=== PATIENT | male | born 2005 | race Two or more races ===

== ENCOUNTER 2023-01-06 16:35 | Emergency (ER) | payer OTHER ==
[~2023-01-06] VITALS: Ht 162.6 cm; Wt 54.4 kg
[2023-01-06 18:22] LABS: HEMATOCRIT 43.8 % (39.0-48.0); MEAN CORPUSCULAR HEMOGLOBIN 28.2 pg (27.00-32.0); MEAN CORPUSCULAR HGB CONC 34.4 g/dl (32.0-36.0); PLATELET COUNT 192 K/uL (150-450); RED BLOOD COUNT 5.34 M/uL (4.00-6.00); RED CELL DISTRIBUTION WIDTH 14.3 % (11.5-14.5)
== END 2023-01-06 19:38 | disposition home or self-care (01) ==
LOC: ER 16:36 → EMR PED 16:36
PROVIDERS: Emergency Medicine
DX: J06.9 Acute upper respiratory infection, unspecified (principal); H66.90 Otitis media, unspecified, unspecified ear; Z91.018 Allergy to other foods; Z20.822 Contact with and (suspected) exposure to COVID-19